=== PATIENT | male | born 1990 | race Caucasian/White ===

== ENCOUNTER 2022-06-19 23:29 | Inpatient (IN) | payer MEDICAID ==
[~2022-06-19] VITALS: Ht 188 cm; Wt 113.4 kg
--- NOTE | 2022-06-19 23:40 | NUR ---
[id number]. CALLED IN BY FRIENDS - REPORTED BREATHING. HYPOXIC, BAGGED NARCAN 2MG IV GIVENWOKE UP COMBATIVE GIVEN VERSED 5MG BY EMS. PATIENT IN BED 14 ON MONITOR AND POX.
--- NOTE | 2022-06-20 00:11 | NUR ---
BLOOD WORK COLLECTED
[2022-06-20 00:24] LABS: BASOPHILS % (AUTO) 0.3 % (0.0-2.0); EOSINOPHILS % (AUTO) 1.1 % (0.0-6.0); HEMATOCRIT 46 % (39-51); HEMOGLOBIN 14.9 g/dL (13.5-17.5); LYMPHOCYTES # (AUTO) 2.7 K/uL (0.8-4.8); LYMPHOCYTES % (AUTO) 24.1 % (20.0-44.0); MEAN CORPUSCULAR HGB CONC 33 g/dl (31.0-36.0); MEAN CORPUSCULAR VOLUME 89 fL (80-96); MONOCYTES # (AUTO) 1.1 K/uL (0.1-1.30); NEUTROPHILS # (AUTO) 7.3 K/uL (1.8-8.9); NEUTROPHILS % (AUTO) 64.5 % (43.0-81.0); PLATELET COUNT (AUTO) 334 K/uL (150-450); RED BLOOD CELL COUNT(AUTO) 5.14 MIL/uL (4.5-6.0); WHITE BLOOD COUNT (AUTO) 11.3 K/uL (4.3-11.0)
[2022-06-20 00:43] LABS: ALANINE AMINOTRANSFERASE 155 U/L (12-78); ALBUMIN 3.9 g/dL (3.4-5.0); ALCOHOL, BLOOD < 3 mg/dL (0-0); ALKALINE PHOSPHATASE 71 U/L (46-116); ASPARTATE AMINOTRANSFERASE 147 U/L (15-37); BILIRUBIN,DIRECT 0.3 mg/dL (0.0-0.2); BILIRUBIN,TOTAL 0.7 mg/dL (0.2-1.0); CALCIUM, SERUM 8.4 mg/dL (8.5-10.1); CARBON DIOXIDE 25 mmol/L (21-32); CHLORIDE 102 mmol/L (98-107); CREATININE 1.3 mg/dL (0.6-1.3); GLUCOSE 155 mg/dL (74-106); POTASSIUM 3.5 mmol/L (3.5-5.1); SODIUM SERUM 139 mmol/L (136-145); TOTAL PROTEIN, SERUM 7.5 g/dL (6.4-8.2); UREA NITROGEN, BLOOD 15 mg/dL (7-18)
[2022-06-20 00:59] LABS: ACETAMINOPHEN 0 ug/ml (10-30)
[2022-06-20] MEDS ORDERED: HALOPERIDOL LACTATE INJ 5 MG/ML VIAL IM ONE (02:00)
[2022-06-20] MEDS ORDERED: HALOPERIDOL LACTATE INJ 5 MG/ML VIAL ONE (02:00)
[2022-06-20 03:33] LABS: BILIRUBIN,URINE NEGATIVE (NEGATIVE); COLOR,URINE DARK YELLOW (YELLOW); LEUKOCYTE ESTERASE ,URINE NEGATIVE (NEGATIVE); NITRITE, URINE NEGATIVE (NEGATIVE); PH,URINE 5.5 (5.0-8.0); PROTEIN,URINE 1+ mg/dl (NEGATIVE); UGLUCOSE NEGATIVE (NEGATIVE); UROBILINOGEN,URINE 0.2 EU/dL (0.2)
[2022-06-20 03:38] LABS: BACTERIA,URINE Few /HPF (None Seen); SQUAMOUS EPITHELIAL CELL,UR Moderate /HPF (None Seen)
--- NOTE | 2022-06-20 05:19 | NUR ---
CALL DR PRESSLEY @[phone] FOR PEER TO PEER AT [facility]
[2022-06-20] MEDS ORDERED: CEFEPIME 1 GM in IV D5W 50 ML IV ONE (05:30)
--- NOTE | 2022-06-20 05:30 | NUR ---
COVID SWAB COLLECTED
[2022-06-20] MEDS ORDERED: ALBUTEROL FS 2.5 MG/0.5 ML VIAL.NEB NEB PRN (06:00)
[2022-06-20] MEDS ORDERED: ACETAMINOPHEN 325 MG TABLET PO PRN (06:00)
[2022-06-20] MEDS ORDERED: MORPHINE SULFATE INJ 2 MG/ML DISP.SYRIN IV PRN (06:00)
[2022-06-20] MEDS ORDERED: ONDANSETRON HCL/PF 4 MG/2 ML VIAL IVP PRN (06:00)
--- NOTE | 2022-06-20 08:00 | NUR ---
PT AWAKE. CALM, COOPERATIVE AND ORIENTED X 4. PT DENIES SI/HI. PT STATES "I WANT TO GO HOME". EXPLAINED REASON FOR ADMISSION. PT IS NOW WILLING TO STAY FOR TREATMENT.
--- NOTE | 2022-06-20 08:02 | NUR ---
DR. SHEA AT BEDSIDE. PT AAOX4. GIVEN FOOD AND WATER. TOLERATED WELL.
--- NOTE | 2022-06-20 09:37 | NUR ---
PT APPEARS TO BE SLEEPING. O2 SAT 98% ON NC 6L. BREATHING EVEN AND UNLABORED.
--- NOTE | 2022-06-20 10:28 | NUR ---
GOT BED 328-1 LOKI RANDLE
--- NOTE | 2022-06-20 10:51 | NUR ---
REPORT GIVEN TO JER MANJARREZ
--- NOTE | 2022-06-20 11:30 | NUR ---
SS Consult: SS consult requested for addiction rehab referrals. The pt. is a 32 -year-old male pt. who came into ED due to acute drug overdose per EMR. Upon SS consult, the pt. is Alert & Oriented x 4 and makes poor eye contact. The pt. appears unkempt, drowsy. Pt. has dysphoric mood & affect. Pt.s speech is loud & clear and thought process is WNL. Pt. remained calm & cooperative throughout interview. Pt. denies SI/HI and states denies hallucinations. SW explored pt.s living situation. Per pt. he lives at home [[address] [facility]] with friend, Felicia. SW explored pt.s drug & ETOH use. Pt. denies any drug use. However, pt. tested positive for Amphetamines and cannabinoids. SW offered pt. referral to rehab facility and pt. accepted resources. SW use motivational interviewing and psychoeducation on drug dependence. Pt. accepted addiction resources for detox/rehab facilities, sober livings and support groups. Pt. denied any mental health diagnosis. The pt. stated he is usually ambulatory and independent with his ADLs. Plan: SW provided pt. with the following addiction resources and pt. accepted them. SW discussed with Anant HENDRICKSON who stated that pt. will possibly be admitted for stabilization. Pt. states he wants to return home [[address] [facility] [address] when he is medically cleared. Noted. ADDICTION RESOURCES For Drugs and Alcohol [facility] sober living Referrals For Rehabilitation once sober Address:[address] [place] [address] [facility] [address] [place] [address] Detox/[address] [facility] Substance Abuse Helpline ([facility]) Outpatient, residential treatment, recovery support for youth/adults [facility] www.actionfamilycounseling.[employer] [facility] Teen programs for drug/alcohol education and support Amado Kennedy [place]. Program for adults, sliding scale provides support and education Cristy Alminder www.Story of My Life.org [place]; Detox/residential treatment programs; transition to sober living [facility] www.cri-help.org [place]; Outpatient and residential treatment programs; transition to sober living [facility] TEL: [phone] [facility] Rasheed Anderson; Outpatient education and supportive programs for teens and adults [facility] www.[facility]re[facility].org [place]; Residential treatment and work program for females only [place] www.[facility].[employer] [place]: Outpatient/residential treatment program for teens and young adults [facility] www.[facility].org [place] Detox, inpatient, outpatient for adults and youth [facility], [facility]. [place]; Outpatient programs and referrals to community residential programs. Alcoholics Anonymous -SFV information and meeting and scheduleswww.aa-intergroup.org Cj-Pqiv[facility] https://al-anon.org/ [place] support groups for family of alcoholics. Marijuana Anonymous www.madistrict6.org -SFV listing of meetings Narcotics Anonymous www.na.org SOBER LIVING RESOURCES [facility] www.soberhousing.net A non-profit agency that provides resources to recovery and sober living homes throughout [facility] Sober Living Homes: A Work in Progress, [facility], [place] [facility] Homes: [facility] x [phone] My [facility] Beginning, [facility] Sober Living Homes: [facility] Counseling--Outpatient [facility] [address] [place] [address] (Specializes in in-depth psychotherapy for emotional distress: anxiety, depression, interpersonal conflicts, life transitions, childhood abuse) [facility] [address] [place] [address] (Assist with solving problem marital difficulties, separation & divorce, aging parents, & grief, chronic & terminal illness) [facility] [address] [place] [address] (Deal with loss & grief, anxiety, marital difficulties) Homebound/Mental Health Services [address] [facility] [address] [place] [address] (Provide in-home mental services to people who are incapable of leaving their homes) [facility] for Needs of the Elderly Senior Service/Resource Center [address] [place] [address] [facility] [address] [place] [address] Mental Health Services [facility] [address] [place] [address] Services: Outpatient therapy for children, teens, young adults, adults, older adults, and families; Psychiatric services, medication support Psychiatric Outpatient Services [facility] Partial Hospitalization and Intensive Outpatient Program (Managed Care and [place] Only)[address] [facility]. [facility] [phone] [facility] Partial Hospitalization and Outpatient [id number] [facility] [place], [place] [phone] [facility] [id number] [facility] [address] [place], [place] [phone] [facility] Partial Hospitalization and Outpatient [id number] [place], [phone] Crisis and Hotline Telephone Numbers 24-Hour service unless stated [place] Crisis Hotlines: [facility] Mental Health/Crisis Line........[phone] Suicide Prevention Center (24 Hours).......[phone] Suicide Prevention Crisis Center.......[phone] (24 Hours) Assaults Against Women Hotline.........995.309.5325 (24 Hours -- [facility]) Women and Children Crisis [facility]...........[phone] (24 Hours) Child Abuse Hotline............274.384.6059 [facility] (24 Hours)..........[phone] Alcoholics Anonymous (24 Hours)..........[phone] Cocaine Anonymous (24 Hours)............[phone] Narcotics Anonymous (24 Hours)..........[phone] Masha Iyer [facility] [address] [place] [address]
[2022-06-20] MEDS: IV NS 0.9% 1,000 ML IV SCH (12:56)
[2022-06-20] MEDS: HEPARIN SODIUM, PORCINE 5000 UNITS/1 ML VIAL SQ SCH ×2 (12:58→21:29)
[2022-06-20] MEDS ORDERED: IV NS 0.9% 500 ML IV ONE (14:00)
[2022-06-20] MEDS: CEFEPIME 2 GM in IV D5W 100 ML IV SCH ×2 (14:21→21:29)
[2022-06-20] MEDS ORDERED: FUROSEMIDE 100 MG/10 ML VIAL IV ONE (17:00)
[2022-06-20] MEDS ORDERED: POTASSIUM CHLORIDE 20 MEQ TAB.PRT.SR PO ONE (17:00)
--- NOTE | 2022-06-20 19:23 | NUR ---
RN OPENING NOTE; RECEIVED PT IN BED SLEEPING BUT EASY TO AROUSED,AOX4 ABLE TO MAKE NEEDS KNOWN,ON 6L O2 VIA NC BENJA WELL, SATTING 98%,NO SIGN SOB/DISTRESS NOTED,IV ACCESS ON RAC 20G PATENT AND INTACT,SAFETY MEASURE IN PLACE,CALL LIGHT WITHIN REACH,WILL CONTINUE TO MONITOR.
[2022-06-20] MEDS: ALBUTEROL FS 2.5 MG/0.5 ML VIAL.NEB NEB SCH (19:30)
[2022-06-20] MEDS: IPRATROPIUM NEB FS 0.5 MG/2.5 ML AMPUL.NEB NEB SCH (19:30)
[2022-06-20 20:00] VITALS: BP 129/69
[2022-06-21 00:29] VITALS: BP 120/88
[2022-06-21] MEDS: IPRATROPIUM NEB FS 0.5 MG/2.5 ML AMPUL.NEB NEB SCH ×4 (01:07→20:48)
[2022-06-21] MEDS: ALBUTEROL FS 2.5 MG/0.5 ML VIAL.NEB NEB SCH ×4 (01:07→20:48)
[2022-06-21] MEDS: CEFEPIME 2 GM in IV D5W 100 ML IV SCH ×3 (04:16→20:40)
[2022-06-21] MEDS: IV NS 0.9% 1,000 ML IV SCH ×3 (04:29→21:44)
[2022-06-21 06:18] LABS: BASOPHILS % (AUTO) 0.2 % (0.0-2.0); EOSINOPHILS % (AUTO) 0.3 % (0.0-6.0); HEMATOCRIT 42 % (39-51); HEMOGLOBIN 14.2 g/dL (13.5-17.5); LYMPHOCYTES # (AUTO) 1.7 K/uL (0.8-4.8); LYMPHOCYTES % (AUTO) 7.4 % (20.0-44.0); MEAN CORPUSCULAR HGB CONC 34 g/dl (31.0-36.0); MEAN CORPUSCULAR VOLUME 88 fL (80-96); MONOCYTES # (AUTO) 1.5 K/uL (0.1-1.30); MONOCYTES % (AUTO) 6.3 % (2.0-12.0); NEUTROPHILS # (AUTO) 19.8 K/uL (1.8-8.9); NEUTROPHILS % (AUTO) 85.8 % (43.0-81.0); PLATELET COUNT (AUTO) 265 K/uL (150-450); RED BLOOD CELL COUNT(AUTO) 4.83 MIL/uL (4.5-6.0)
--- NOTE | 2022-06-21 06:28 | NUR ---
RN CLOSING NOTE; PT IN BED SLEEPING BUT EASY TO AROUSED,AOX4 ABLE TO MAKE NEEDS KNOWN,ON 5L O2 VIA NC BENJA WELL, SATTING 97%,NO SIGN SOB/DISTRESS NOTED,DUE MEDS GIVEN ORDER,ALL NEEDS ATTENDED,IV ACCESS ON RAC 20G PATENT AND INTACT,SAFETY MEASURE IN PLACE,CALL LIGHT WITHIN REACH,WILL ENDORSED TO NEXT SHIFT.
[2022-06-21 06:41] LABS: ALBUMIN 3.1 g/dL (3.4-5.0); BILIRUBIN,TOTAL 0.8 mg/dL (0.2-1.0); CALCIUM, SERUM 8.2 mg/dL (8.5-10.1); MAGNESIUM 1.9 mg/dL (1.8-2.4); PHOSPHORUS 1.9 mg/dL (2.5-4.9); POTASSIUM 3.4 mmol/L (3.5-5.1); TOTAL PROTEIN, SERUM 6.7 g/dL (6.4-8.2)
[2022-06-21 08:00] VITALS: BP 140/67
--- NOTE | 2022-06-21 08:13 | NUR ---
MS RN OPENING NOTES RECEIVED PT IN BED SLEEPING. EASY TO AROUSED. AOX4 ABLE TO MAKE NEEDS KNOWN. ON 5LPM O2 VIA NASAL CANULA. O2 SATURATION 98%. NO SIGN SOB NOT IN DISTRESS NOTED. IV ACCESS ON RAC 20G PATENT AND INTACT. SAFETY MEASURE IN PLACE. CALL LIGHT WITHIN REACH, BED IN LOWEST POSITION, BED IS LOCKED. WILL CONTINUE TO MONITOR.
[2022-06-21] MEDS ORDERED: POTASSIUM CHLORIDE 20 MEQ TAB.PRT.SR PO ONE (09:00)
[2022-06-21] MEDS: HEPARIN SODIUM, PORCINE 5000 UNITS/1 ML VIAL SQ SCH ×2 (09:22→22:14)
[2022-06-21] MEDS ORDERED: K PHOS NEUTRAL 250 MG TABLET PO ONE (10:00)
[2022-06-21 10:46] LABS: BAND % (MANUAL) 3 % (0.0-5.0); BASOPHILS % (MANUAL) 0 % (0.0-2.0); EOSINOPHILS % (MANUAL) 0 % (0-4); LYMPHOCYTES % (MANUAL) 8 % (16-48); MONOCYTES % (MANUAL) 7 % (0-11.0); NEUTROPHILS % (MANUAL) 82 (42-76)
[2022-06-21 11:50] LABS: ABG BASE EXCESS 2.7 mmol/L; ABG PCO2 40.4 mmHg (35.0-45.0); ABG PH 7.443 (7.350-7.450); ABG PO2 53.4 mmHg (75.0-100.0); COHb 0.7 % (0.5-1.5); MetHb 0.3 % (0.0-1.5); O2Hb 88.5 % (94.0-97.0); SITE, ABG Right Radial; VENT MODE, BG ROOM AIR
--- NOTE | 2022-06-21 12:26 | NUR ---
MS RN NOTES INFORMED DR. STEIN ABOUT PATIENT ARTERIAL BLOOD GAS RESULT AND PATIENT REFUSES BREATHING TREATMENT.
[2022-06-21 16:00] VITALS: BP 129/75
--- NOTE | 2022-06-21 16:03 | NUR ---
MS RN NOTES PATIENT REQUESTED FOR BREATHING TREATMENT. RT WAS INFORMED
--- NOTE | 2022-06-21 18:40 | NUR ---
MS RN CLOSING NOTES PATIENT IN BED AWAKE AND ORIENTED X4. ABLE TO MAKE NEEDS KNOWN,ON 4LPM O2 VIA NASAL CANNULA, O2 SATURATION 97%. NO SIGN SHORTNESS OF BREATH AND NOT IN DISTRESS NOTED. ALL MEDICATIONS ARE GIVEN ORDERED. ALL NEEDS ATTENDED. IV ACCESS ON RAC 20G PATENT AND INTACT, SAFETY MEASURE IN PLACE. CALL LIGHT WITHIN REACH, BED IN LOWEST POSITION, BED IS LOCKED. WILL ENDORSED TO NEXT SHIFT FOR CONTINUING OF CARE.
[2022-06-21 20:00] VITALS: BP 139/78
--- NOTE | 2022-06-21 20:00 | NUR ---
TELE RESIDENTIAL DRIVER INITIAL NOTES RECEIVED REPORT FROM AM NURSE AND SEEN PT IN BED AWAKE AND ALERT ON SITTING POSITION. STILL IN IVF NS AT 75 ML/HR. DENIES ANY PAIN OR ANY DISCOMFORT. HE STILL ON O2 AT 4 LITERS VIA NC. VITAL SIGNS STABLE. KEPT HIM WARM AND COMFORTABLE AT ALL TIMES. WILL CONTINUE MONITORING. CALL LIGHT AT REACH.
[2022-06-22] VITALS: BP 141/67
[2022-06-22] MEDS: IPRATROPIUM NEB FS 0.5 MG/2.5 ML AMPUL.NEB NEB SCH ×4 (01:26→19:30)
[2022-06-22] MEDS: ALBUTEROL FS 2.5 MG/0.5 ML VIAL.NEB NEB SCH ×4 (01:26→19:30)
[2022-06-22 04:00] VITALS: BP 125/73
[2022-06-22] MEDS: CEFEPIME 2 GM in IV D5W 100 ML IV SCH ×2 (04:02→12:30)
[2022-06-22 06:23] LABS: BASOPHILS % (AUTO) 0.1 % (0.0-2.0); EOSINOPHILS % (AUTO) 0.4 % (0.0-6.0); HEMATOCRIT 42 % (39-51); HEMOGLOBIN 13.9 g/dL (13.5-17.5); LYMPHOCYTES # (AUTO) 1.4 K/uL (0.8-4.8); LYMPHOCYTES % (AUTO) 9.2 % (20.0-44.0); MEAN CORPUSCULAR HGB CONC 34 g/dl (31.0-36.0); MEAN CORPUSCULAR VOLUME 88 fL (80-96); MONOCYTES # (AUTO) 1.3 K/uL (0.1-1.30); NEUTROPHILS # (AUTO) 12.1 K/uL (1.8-8.9); NEUTROPHILS % (AUTO) 81.3 % (43.0-81.0); PLATELET COUNT (AUTO) 258 K/uL (150-450); RED BLOOD CELL COUNT(AUTO) 4.71 MIL/uL (4.5-6.0); WHITE BLOOD COUNT (AUTO) 14.9 K/uL (4.3-11.0)
[2022-06-22 06:42] LABS: CALCIUM, SERUM 7.9 mg/dL (8.5-10.1); CREATININE 0.8 mg/dL (0.6-1.3); PHOSPHORUS 1.9 mg/dL (2.5-4.9); POTASSIUM 3.4 mmol/L (3.5-5.1)
--- NOTE | 2022-06-22 06:51 | NUR ---
TELE DAIRY CATTLE FARMER NOTES PT REMAINS SLEEPING COMFORTABLY IN BED WITHOUT ANY DISTRESS NOTED. HE'S STABLE THROUGHOUT THE NIGHT AND NO COMPLAINT OF ANY DISCOMFORT. ALL DUE MEDS GIVEN AND ALL NEEDS MET. KEPT HIM WARM AND COMFORTABLE AT ALL TIMES. BED IN LOW AND LOCK IN POSITION WITH SIDE RAILS X2 UP. WILL ENDORSE TO AM NURSE FOR CONTINUITY OF CARE. PLACE CALL LIGHT AT REACH.
[2022-06-22 07:00] VITALS: BP 145/88
--- NOTE | 2022-06-22 07:30 | NUR ---
MEETING MANAGER OPENING NOTES RECEIVED PT IN BED SLEEPING. EASY TO AROUSED. AOX4 ABLE TO MAKE NEEDS KNOWN. ON 4LPM O2 VIA NASAL CANULA. O2 SATURATION 94%. NO SIGN SOB NOT IN DISTRESS NOTED. IV ACCESS ON LAC 20G PATENT AND INTACT. SAFETY MEASURE IN PLACE. CALL LIGHT WITHIN REACH, BED IN LOWEST POSITION, BED IS LOCKED. WILL CONTINUE TO MONITOR. Addendum: 06/22/22 at 0859 by MELYSSA DO RN MEETING MANAGER OPENING NOTES RECEIVED PT IN BED SLEEPING. EASY TO AROUSED. AOX4 ABLE TO MAKE NEEDS KNOWN. ON 4LPM O2 VIA NASAL CANULA. O2 SATURATION 94%. NO SIGN SOB NOT IN DISTRESS NOTED. IV ACCESS ON LEFT WRIST 20G PATENT AND INTACT. SAFETY MEASURE IN PLACE. CALL LIGHT WITHIN REACH, BED IN LOWEST POSITION, BED IS LOCKED. WILL CONTINUE TO MONITOR.
[2022-06-22] MEDS: HEPARIN SODIUM, PORCINE 5000 UNITS/1 ML VIAL SQ SCH (08:50)
[2022-06-22] MEDS ORDERED: POTASSIUM CHLORIDE 20 MEQ TAB.PRT.SR PO SCH (10:00)
[2022-06-22] MEDS: IV NS 0.9% 1,000 ML IV SCH (11:15)
--- NOTE | 2022-06-22 15:30 | NUR ---
RN NOTES PATIENT IS SEEN BY DR. STEIN.
[2022-06-22] MEDS ORDERED: NEUTRA PHOS 1 POWD.PACKET PO ONE (16:00)
--- NOTE | 2022-06-22 16:30 | NUR ---
RN NOTES NUETRA PHOS POWDER NOT AVAILABLE. CALLED PHARMACY.
[2022-06-22] MEDS ORDERED: AMOX875T2 PO (17:47)
--- NOTE | 2022-06-22 18:48 | NUR ---
BANQUET DIRECTOREVENT STAFF MEMBER NOTE RECEIVED ORDER FOR DISCHARGE. PATIENT IS A/O X4, ABLE TO MAKE NEEDS KNOWN. PATIENT IS BREATHING EVENLY AND UNLABORED ON ROOM AIR. NO SIGNS OF DISTRESS NOTED. PATIENT DO NOT HAVE COMPLAINS OF PAIN AT THIS TIME. PATIENT IS GIVEN DISCHARGE INSTRUCTIONS BOTH VERBALLY AND IN WRITTEN FORM. PATIENT VERBALIZES UNDERSTANDING. PATIENT BELONGINGS ARE ACCOUNTED FOR, BELONGING SHEET SIGNED. IV ACCES REMOVED. PATIENT LEFT IN A STABLE CONDITION VIA PRIVATE CAR WITH SIGNIFICANT OTHER.
== END 2022-06-22 19:20 | disposition home or self-care (01) | DRG 812 ==
LOC: EDBD 23:32 → ER 23:32 → MED 06-20 10:30 → TELE 06-21 08:33
PROVIDERS: ADMIT Nurse Practitioner Acute Care; ATTEND Nurse Practitioner Acute Care
DX: T50.991A Poisoning by other drugs, medicaments and biological substances, accidental (unintentional), initial encounter (principal); J96.01 Acute respiratory failure with hypoxia; J69.0 Pneumonitis due to inhalation of food and vomit; G93.41 Metabolic encephalopathy; J70.2 Acute drug-induced interstitial lung disorders; E87.20 Acidosis, unspecified; Y92.9 Unspecified place or not applicable; R74.01 Elevation of levels of liver transaminase levels; F19.90 Other psychoactive substance use, unspecified, uncomplicated; F12.90 Cannabis use, unspecified, uncomplicated
CPT/HCPCS: 36415; 36600; 71045-TC; 80048-TC; 80053-TC; 80076-TC; 81001; 82803-TC; 83605-TC; 83735-TC; 83880; 84100-TC; 85025-TC; 87040-TC; 94799-TC; C9803; G0378; G0480; J0692; J1630; J1644; J1940; J7030; J7040; J7060